=== PATIENT | male | born 1950 | race Caucasian/White ===

== ENCOUNTER 2017-07-02 14:34 | Observation (INO) | payer MEDICARE, OTHER ==
[2017-07-02 14:34] VITALS: BMI 34.7
[2017-07-02 16:00] LABS: BASO % 0.7 % (0.0-2.0); EOS # 0.3 K/uL (0.0-0.7); EOS % 4.8 % (0.0-4.0); HEMOGLOBIN 12.7 g/dL (12.0-18.0); LYMPH # 1.8 K/uL (1.0-4.3); LYMPH % 25.3 % (20.0-40.0); MEAN CELL VOLUME 78.8 fL (80.0-94.0); MEAN CORPUSCULAR HEMOGLOBIN 25.5 pg (27.0-31.0); MEAN CORPUSCULAR HGB CONC 32.3 g/dL (33.0-37.0); MONO # 0.6 K/uL (0.0-0.8); MONO % 8.4 % (0.0-10.0); NEUT # 4.3 K/uL (1.8-7.0); NEUT % 60.8 % (50.0-75.0); RBC 4.98 Mil/uL (4.40-5.90); RED CELL DISTRIBUTION WIDTH 15.1 % (11.5-14.5)
[2017-07-02 16:11] LABS: PROTHROMBIN TIME 11.7 SECONDS (9.7-12.2)
[2017-07-02 16:18] LABS: ALB/GLOB RATIO 1.3 (1.0-2.1); ALBUMIN 4.3 g/dL (3.5-5.0); GFR AFRICAN-AMERICAN > 60; GFR NON-AFRICAN AMERICAN > 60
[2017-07-02 16:21] LABS: ALT/SGPT 26 U/L (21-72); AST/SGOT 28 U/L (17-59); BLOOD UREA NITROGEN 19 mg/dL (9-20)
[2017-07-02 16:32] LABS: B-TYPE NATRIURETIC PEPTIDE 33.3 pg/mL (0-900)
--- NOTE | 2017-07-02 17:16 | C.PDOC ---
Time Seen by Provider: 07/02/17 15:15 Chief Complaint (Nursing): Chest Pain History Per: Patient Onset/Duration Of Symptoms: Days (about 2 weeks), Intermittent Episodes Current Symptoms Are (Timing): Still Present Severity: Moderate Quality: "Pain" Associated Symptoms: Dyspnea, Other (Dizziness) Modifying Factors: Other Indicated Below Exacerbating Factors: Exertion Alleviating Factors: Rest Nitro Therapy Administered: 1, Per ED, Partial Relief Additional History Per: Prior Records Past Medical History Reviewed: Historical Data, Nursing Documentation, Vital Signs Vital Signs: Last Vital Signs Temp 98.4 F 07/02/17 16:07 Pulse 86 07/02/17 16:14 Resp 18 07/02/17 16:14 BP 158/85 H 07/02/17 16:14 Pulse Ox 97 07/02/17 17:17 - Medical History PMH: CAD, HTN, Hypercholesterolemia Surgical History: Coronary Stent - [facility] Procedures INSERTION OF ONE VASCULAR STENT (07/27/14) INSRT OF DRUG-ELUTING CORON ARTERY STENTS(S) (07/27/14) LEFT HEART CARDIAC CATH (07/27/14) LT HEART ANGIOCARDIOGRAM (07/27/14) MEASURE OF CARDIAC SAMPL & PRESSURE, L HEART, PERC APPROACH (03/22/15) PERCUTANEOUS TRANSLUMINAL CORONARY ANGIOPLASTY [PTCA] (07/27/14) PLAIN RADIOGRAPHY OF LEFT HEART USING OTHER CONTRAST (03/22/15) PLAIN RADIOGRAPHY OF MULT COR ART USING OTH CONTRAST (03/22/15) PROCEDURE ON SINGLE VESSEL (07/27/14) Family History: States: Unknown Family Hx - Social History Hx Tobacco Use: No Hx Alcohol Use: No Hx Substance Use: No - Immunization History Hx Tetanus Toxoid Vaccination: No Hx Influenza Vaccination: Yes Hx Pneumococcal Vaccination: No Review Of Systems Except As Marked, All Systems Reviewed And Found Negative. Constitutional: Negative for: Fever Cardiovascular: Positive for: Chest Pain, Light Headedness Respiratory: Positive for: SOB with Excertion. Negative for: Hemoptysis Gastrointestinal: Negative for: Vomiting, Abdominal Pain, Diarrhea Musculoskeletal: Negative for: Neck Pain, Leg Pain Skin: Positive for: Rash (Itchy rash on anterior chest wall. Not painful.) Neurological: Negative for: Weakness, Numbness Physical Exam - Physical Exam Appears: Non-toxic, No Acute Distress Skin: Normal Color, Warm, Dry, No Rash Head: Atraumatic, Normacephalic Eye(s): bilateral: PERRL, EOMI Neck: Normal ROM, Supple Chest: Other (pruritis rash on sternum) Cardiovascular: Rhythm Regular Respiratory: Normal Breath Sounds, No Accessory Muscle Use Gastrointestinal/Abdominal: Soft, No Tenderness Back: No CVA Tenderness Extremity: Normal ROM, No Pedal Edema, No Calf Tenderness Neurological/Psych: Oriented x3, Normal Motor, Normal Sensation ED Course And Treatment - Laboratory Results Result Diagrams: 07/02/17 15:56 07/02/17 15:56 Lab Interpretation: No Acute Changes ECG: Interpreted By Me, Viewed By Me ECG Rhythm: Sinus Rhythm, Nonspecific Changes ECG Interpretation: No Changes From Prior Interpretation Of ECG: T wave inversions in inferiorlateral leads. Rate From EC O2 Sat by Pulse Oximetry: 97 Pulse Ox Interpretation: Normal - Radiology CXR: Interpreted by Me, Viewed By Me CXR Interpretation: Yes: No Acute Disease Progress - Interventions Interventions:: Observation, Oxygen - Medications Administered Oral: Aspirin - Data Reviewed Data Reviewed: Lab, Diagnostic imaging, EKG, Old records - Patient Status Patient status: Partially improved - Continuity of Care Discussed patient case with:: Patient, ED Nurse, Covering for PMD Disposition Discussed With : Jean Paul Veras Comment: He accepted pt on his service. Doctor Will See Patient In The: Hospital Counseled Patient/Family Regarding: Studies Performed, Diagnosis - Disposition Disposition: HOSPITALIZED Disposition Time: 17:38 Condition: FAIR - Clinical Impression Clinical Impression: ACS (acute coronary syndrome)
--- NOTE | 2017-07-02 17:47 | RAD ---
PROCEDURE: CHEST RADIOGRAPH, 1 VIEW HISTORY: chest pain COMPARISON: 03/20/2015 FINDINGS: LUNGS: Clear. PLEURA: No pneumothorax or pleural fluid seen. CARDIOVASCULAR: No radiographic findings to suggest acute or significant cardiovascular disease. OSSEOUS STRUCTURES: No significant abnormalities. VISUALIZED UPPER ABDOMEN: Normal. OTHER FINDINGS: None. IMPRESSION: No active disease. No acute/significant interval changes.
--- NOTE | 2017-07-02 18:12 | CP.PCM.HP ---
Present on Admission - Present on Admission Any Indicators Present on Admission: No Past Patient History - Past Medical History & Family History Past Medical History?: No - Past Social History Smoking Status: Never Smoked - CARDIAC Hx Hypercholesterolemia: Yes Hx Hypertension: Yes - PULMONARY Hx Respiratory Disorders: No - NEUROLOGICAL Hx Neurological Disorder: No - HEENT Hx HEENT Problems: No - ENDOCRINE/METABOLIC Hx Endocrine Disorders: No Hx Diabetes Mellitus Type 2: Yes - HEMATOLOGICAL/ONCOLOGICAL Hx Blood Disorders: No - INTEGUMENTARY Hx Dermatological Problems: No - MUSCULOSKELETAL/RHEUMATOLOGICAL Hx Falls: No - GASTROINTESTINAL Hx Gastrointestinal Disorders: No - GENITOURINARY/GYNECOLOGICAL Hx Genitourinary Disorders: No Other/Comment: frequent urination - PSYCHIATRIC Hx Substance Use: No - SURGICAL HISTORY Hx Coronary Stent: Yes - ANESTHESIA Hx Anesthesia: Yes Hx Anesthesia Reactions: No Meds Allergies/Adverse Reactions: Allergies Allergy/AdvReac Type Severity Reaction Status Date / Time No Known Allergies Allergy Verified 07/02/17 15:29 Physical Exam - Constitutional Appears: No Acute Distress - Head Exam Head Exam: ATRAUMATIC, NORMAL INSPECTION, NORMOCEPHALIC - Eye Exam Eye Exam: EOMI, Normal appearance, PERRL Pupil Exam: NORMAL ACCOMODATION, PERRL - ENT Exam ENT Exam: Mucous Membranes Moist - Neck Exam Neck exam: Positive for: Full Rom - Respiratory Exam Respiratory Exam: Decreased Breath Sounds - Cardiovascular Exam Cardiovascular Exam: REGULAR RHYTHM, +S1, +S2 - GI/Abdominal Exam GI & Abdominal Exam: Diminished Bowel Sounds, Soft - Rectal Exam Rectal Exam: Deferred Results - Vital Signs Recent Vital Signs: Last Vital Signs Temp 98.4 F 07/02/17 16:07 Pulse 85 07/02/17 17:38 Resp 20 07/02/17 17:38 BP 144/77 07/02/17 17:38 Pulse Ox 97 07/02/17 17:47 - Labs Result Diagrams: 07/02/17 15:56 07/02/17 15:56 Labs: Laboratory Results - last 24 hr 07/02/17 07/02/17 07/02/17 15:56 15:56 15:56 WBC 7.0 RBC 4.98 Hgb 12.7 Hct 39.3 MCV 78.8 L MCH 25.5 L MCHC 32.3 L RDW 15.1 H Plt Count 215 MPV 9.0 Neut % (Auto) 60.8 Lymph % (Auto) 25.3 Donley % (Auto) 8.4 Eos % (Auto) 4.8 H Baso % (Auto) 0.7 Neut # (Auto) 4.3 Lymph # (Auto) 1.8 Donley # (Auto) 0.6 Eos # (Auto) 0.3 Baso # (Auto) 0.0 PT 11.7 INR 1.0 APTT 29 Sodium 140 Potassium 4.9 Chloride 101 Carbon Dioxide 23 Anion Gap 21 H BUN 19 Creatinine 0.8 Est GFR ( Amer) > 60 Est GFR (Non-Af Amer) > 60 Random Glucose 85 Calcium 9.0 Total Bilirubin 0.6 AST 28 ALT 26 Alkaline Phosphatase 66 Troponin I < 0.0120 NT-Pro-B Natriuret Pep 33.3 Total Protein 7.7 Albumin 4.3 Globulin 3.4 Albumin/Globulin Ratio 1.3
[2017-07-02 21:21] LABS: CK-MB 1.08 ng/mL (0.0-3.38)
[2017-07-03 08:20] LABS: CK-MB 0.92 ng/mL (0.0-3.38)
--- NOTE | 2017-07-03 10:10 | CP.PCM.PN ---
Subjective - Date & Time of Evaluation Date of Evaluation: 07/03/17 Time of Evaluation: 10:09 - Subjective Subjective: Progress note for Dr. Veras's Service Pt seen and examined at bedside. He states that he is feeling well today and denies any pain. He states that he has pain usually when moving around and mobilizing the left shoulder. He exhibits that he can reproduce the pain with contracture of the left pectoral group. He also admits to tenderness over the left side of the chest just lateral to the sternum. He denies SOB. Objective - Vital Signs/Intake and Output Vital Signs (last 24 hours): Temp Pulse Resp BP Pulse Ox 98.0 F 71 20 160/87 H 99 07/03/17 07:36 07/03/17 07:36 07/03/17 07:36 07/03/17 07:36 07/03/17 07:36 - Medications Medications: Current Medications Aspirin (Aspirin Chewable) 81 mg PO DAILY [facility] Clopidogrel Bisulfate (Plavix) 75 mg PO DAILY [facility] Heparin Sodium (Porcine) (Heparin) 5,000 units SC Q12 [facility] Metoprolol Tartrate (Lopressor) 25 mg PO BID [facility] Last Admin: 07/02/17 21:30 Dose: 25 mg Rosuvastatin Calcium (Crestor) 20 mg PO HS [facility] Last Admin: 07/02/17 21:29 Dose: 20 mg - Labs Labs: 07/02/17 15:56 07/02/17 15:56 PT 11.7 SECONDS (9.7-12.2) 07/02/17 15:56 INR 1.0 07/02/17 15:56 APTT 29 SECONDS (21-34) 07/02/17 15:56 - Constitutional Appears: No Acute Distress - Head Exam Head Exam: ATRAUMATIC, NORMOCEPHALIC - Eye Exam Eye Exam: EOMI, Normal appearance - ENT Exam ENT Exam: Mucous Membranes Moist - Respiratory Exam Respiratory Exam: Clear to Ausculation Bilateral, NORMAL BREATHING PATTERN - Cardiovascular Exam Cardiovascular Exam: REGULAR RHYTHM, +S1, +S2 - GI/Abdominal Exam GI & Abdominal Exam: Soft. absent: Distended, Tenderness - Neurological Exam Neurological Exam: Alert, Awake, Oriented x3 - Psychiatric Exam Psychiatric exam: Normal Affect, Normal Mood - Skin Skin Exam: Dry, Warm Assessment and Plan - Assessment and Plan (Free Text) Plan: Chest pain with hx of CAD Consult placed to cardio, Dr. West- follow up recs Stress test planned for 07/04 s/p cardiac catheterization in 2014 showing 90% occlusion of RCA - JAYDON placed troponin negative x3 Pro-BNP 33 Follow up 2D echo Follow up official read of EKG CXR- no acute changes ASA 81mg PO Qdaily Plavix 75mg PO Qdaily Metoprolol 25mg PO BID Crestor 20mg PO QHS TSH/free T4 level ordered Lipid panel ordered HbA1C ordered HTN- uncontrolled Metoprolol Tar 25mg PO BID Restarted home med- Enalapril 10mg PO BID Follow up Cardio recs for better BP control Prophylaxis Protonix 40mg PO Qdaily Heparin 5K units sc q12hrs Heart healthy diet case discussed with Dr. Veras all management as per Dr. Veras
[2017-07-03 13:47] LABS: BASO # 0.1 K/uL (0.0-0.2); BASO % 0.9 % (0.0-2.0); EOS # 0.2 K/uL (0.0-0.7); HEMOGLOBIN 12.5 g/dL (12.0-18.0); LYMPH # 1.6 K/uL (1.0-4.3); LYMPH % 25.6 % (20.0-40.0); MEAN CELL VOLUME 78.2 fL (80.0-94.0); MEAN CORPUSCULAR HEMOGLOBIN 25.7 pg (27.0-31.0); MEAN CORPUSCULAR HGB CONC 32.9 g/dL (33.0-37.0); MEAN PLATELET VOLUME 8.7 fL (7.2-11.7); MONO # 0.5 K/uL (0.0-0.8); MONO % 8.4 % (0.0-10.0); NEUT # 3.8 K/uL (1.8-7.0); NEUT % 61.1 % (50.0-75.0); RBC 4.85 Mil/uL (4.40-5.90); WHITE BLOOD COUNT 6.2 K/uL (4.8-10.8)
[2017-07-03 14:22] LABS: ALB/GLOB RATIO 1.4 (1.0-2.1); ALBUMIN 4.1 g/dL (3.5-5.0); ALT/SGPT 31 U/L (21-72); AST/SGOT 21 U/L (17-59); BLOOD UREA NITROGEN 18 mg/dL (9-20); CALCIUM 8.7 mg/dl (8.6-10.4); GFR AFRICAN-AMERICAN > 60; GFR NON-AFRICAN AMERICAN > 60; HDL CHOLESTEROL 30 mg/dL (30-70)
[2017-07-03 14:32] LABS: LDL CHOLESTEROL 78 mg/dL (0-129)
--- NOTE | 2017-07-03 15:57 | CP.PCM.PN ---
Subjective - Date & Time of Evaluation Date of Evaluation: 07/03/17 Time of Evaluation: 09:40 - Subjective Subjective: clinically same Objective - Vital Signs/Intake and Output Vital Signs (last 24 hours): Temp Pulse Resp BP Pulse Ox 98.0 F 71 20 166/89 H 99 07/03/17 07:36 07/03/17 07:36 07/03/17 07:36 07/03/17 10:36 07/03/17 07:36 - Medications Medications: Current Medications Aspirin (Aspirin Chewable) 81 mg PO DAILY [facility] Last Admin: 07/03/17 10:36 Dose: 81 mg Clopidogrel Bisulfate (Plavix) 75 mg PO DAILY [facility] Last Admin: 07/03/17 10:36 Dose: 75 mg Enalapril Maleate (Vasotec) 10 mg PO BID [facility] Heparin Sodium (Porcine) (Heparin) 5,000 units SC Q12 [facility] Last Admin: 07/03/17 10:37 Dose: Not Given Metoprolol Tartrate (Lopressor) 25 mg PO BID [facility] Last Admin: 07/03/17 10:36 Dose: 25 mg Rosuvastatin Calcium (Crestor) 20 mg PO HS [facility] Last Admin: 07/02/17 21:29 Dose: 20 mg - Labs Labs: 07/03/17 13:36 07/03/17 13:36 PT 11.7 SECONDS (9.7-12.2) 07/02/17 15:56 INR 1.0 07/02/17 15:56 APTT 29 SECONDS (21-34) 07/02/17 15:56 - Constitutional Appears: Well - Head Exam Head Exam: ATRAUMATIC, NORMAL INSPECTION, NORMOCEPHALIC - Eye Exam Eye Exam: EOMI, Normal appearance, PERRL Pupil Exam: NORMAL ACCOMODATION, PERRL - ENT Exam ENT Exam: Mucous Membranes Moist, Normal Exam - Neck Exam Neck Exam: Full ROM, Normal Inspection. absent: Lymphadenopathy - Respiratory Exam Respiratory Exam: Decreased Breath Sounds - Cardiovascular Exam Cardiovascular Exam: REGULAR RHYTHM, +S1, +S2 - GI/Abdominal Exam GI & Abdominal Exam: Soft, Diminished Bowel Sounds - Rectal Exam Rectal Exam: Deferred
--- NOTE | 2017-07-04 01:00 | CON ---
DATE: CARDIOLOGY CONSULTATION REASON FOR CONSULTATION: Chest pain. HISTORY OF PRESENT ILLNESS: The patient is a 67-year-old male, originally from [place] who has a history of hypertension, diabetes mellitus, history of coronary artery disease, status post coronary artery stenting presented because of chest pain, located in the left pectoral area with exertional dyspnea. The patient denied any associated diaphoresis. SOCIAL HISTORY: The patient is a former smoker. MEDICATIONS: Aspirin 81 mg once a day, Crestor 20 mg once a day, subcutaneous heparin 5000 units every 12 hours, Lopressor 25 mg once a day, Plavix 75 mg once a day, Vasotec 10 mg twice a day. REVIEW OF SYSTEMS: No nausea, vomiting. No fever or chills. The patient has steady left shoulder pain for the past few days. PHYSICAL EXAMINATION: GENERAL: The patient is an elderly male, who does not appear to be in any acute distress. VITAL SIGNS: Blood pressure 116/87, heart rate 71, temperature 98, respirations 20. HEENT: Normocephalic. NECK: No JVD. CHEST: Clear. HEART: S1 and S2 regular. ABDOMEN: Soft. EXTREMITIES: No edema. LABORATORIES: Hemoglobin and hematocrit 12.5 and 37.9. White count and platelet count are within normal limits. Yesterday' s SMA-7 is within normal limits, except for an anion gap of 21, three sets of troponins are negative. PT, PTT, INR are within normal limits. EKG revealed sinus rhythm with nonspecific T-wave changes. ASSESSMENT: 1. Chest pain. Myocardial infarction is ruled out. 2. Hypertension and diabetes mellitus. 3. Coronary artery disease, status post coronary stenting about 2 years ago. RECOMMENDATIONS: Continue current aspirin 81 mg once a day, Crestor 20 mg once a day, Lopressor 25 mg once a day, Plavix 75 mg once a day, Vasotec 10 mg twice a day. The patient is scheduled for Myoview stress test tomorrow. Young West MD
--- NOTE | 2017-07-04 06:29 | CARD ---
APPROVED REPORT EXAM: Two-dimensional and M-mode echocardiogram with Doppler and color Doppler. Other Information Quality : GoodRhythm : NSR INDICATION Dizziness and Vertigo Chest Pain Non STEMI RISK FACTORS Hypertension Hyperlipidemia Diabetes 2D DIMENSIONS IVSd1.2 (0.7-1.1cm)LVDd4.8 (3.9-5.9cm) PWd0.9 (0.7-1.1cm)LVDs2.9 (2.5-4.0cm) FS (%) 39.8 %LVEF (%)70.3 (>50%) M-Mode DIMENSIONS RVDd0.74 (2.1-3.2cm)Left Atrium (MM)3.76 (2.5-4.0cm) IVSd1.29 (0.7-1.1cm)Aortic Root2.94 (2.2-3.7cm) LVDd5.35 (4.0-5.6cm)Aortic Cusp Exc.1.49 (1.5-2.0cm) PWd0.89 (0.7-1.1cm)FS (%) 36 % LVDs3.43 (2.0-3.8cm)LVEF (%)65 (>50%) Mitral Valve MV E Rinjiyho60.6cm/sMV A Ykzlfzne938.1cm/sE/A ratio0.8 TDI E/Lateral E'0.0E/Medial E'0.0 <Conclusion> Left ventricle: thickness: normal; size: normal; overall ejection fraction: 65%: diastolic filling pressures: elevated Mitral valve: annulus: normal: leaflets: normal: excursion: normal; no significant trans-mitral gradient: no significant incompetence: left atrium: normal Aortic valve: leaflets: normal: excursion: normal; no significant trans-aortic gradient: No significant incompetence: aortic root: normal Right sided Structures: Pulmonary valve: normal; no significant incompetence; Tricuspid valve: normal; no significant incompetence: Intra-cardiac hemodynamics: pulmonary systolic pressures: normal; central venous pressures: normal No pericardial effusion
[2017-07-04 08:10] LABS: BASO % 0.3 % (0.0-2.0); EOS # 0.3 K/uL (0.0-0.7); EOS % 4.9 % (0.0-4.0); HEMOGLOBIN 12.6 g/dL (12.0-18.0); LYMPH # 1.5 K/uL (1.0-4.3); LYMPH % 24.1 % (20.0-40.0); MEAN CELL VOLUME 78.5 fL (80.0-94.0); MEAN CORPUSCULAR HGB CONC 33.2 g/dL (33.0-37.0); MEAN PLATELET VOLUME 8.9 fL (7.2-11.7); MONO # 0.5 K/uL (0.0-0.8); MONO % 8.4 % (0.0-10.0); NEUT # 3.9 K/uL (1.8-7.0); NEUT % 62.3 % (50.0-75.0); NRBC % 0.1 % (0.0-2.0); RBC 4.86 Mil/uL (4.40-5.90); RED CELL DISTRIBUTION WIDTH 14.9 % (11.5-14.5); WHITE BLOOD COUNT 6.2 K/uL (4.8-10.8)
[2017-07-04 08:30] VITALS: RESP 18
[2017-07-04 09:01] LABS: ALB/GLOB RATIO 1.5 (1.0-2.1); ALT/SGPT 24 U/L (21-72); AST/SGOT 25 U/L (17-59); BLOOD UREA NITROGEN 18 mg/dL (9-20); CALCIUM 8.5 mg/dl (8.6-10.4); GFR AFRICAN-AMERICAN > 60; GFR NON-AFRICAN AMERICAN > 60
--- NOTE | 2017-07-04 10:58 | CP.PCM.PN ---
Subjective - Date & Time of Evaluation Date of Evaluation: 07/04/17 Time of Evaluation: 10:55 - Subjective Subjective: Progress note for Dr. Veras's Service Pt seen and examined at bedside. He states that he is feeling well today and denies any pain. He is awaiting stress testing this morning. No acute events overnight. Objective - Vital Signs/Intake and Output Vital Signs (last 24 hours): Temp Pulse Resp BP Pulse Ox 98.0 F 66 18 153/84 H 97 07/04/17 07:00 07/04/17 07:00 07/04/17 07:00 07/04/17 07:00 07/04/17 07:00 - Medications Medications: Current Medications Aspirin (Aspirin Chewable) 81 mg PO DAILY [facility] Last Admin: 07/04/17 10:25 Dose: Not Given Clopidogrel Bisulfate (Plavix) 75 mg PO DAILY [facility] Last Admin: 07/04/17 10:25 Dose: Not Given Enalapril Maleate (Vasotec) 10 mg PO BID [facility] Last Admin: 07/04/17 10:25 Dose: Not Given Heparin Sodium (Porcine) (Heparin) 5,000 units SC Q12 [facility] Last Admin: 07/04/17 10:25 Dose: Not Given Metoprolol Tartrate (Lopressor) 25 mg PO BID [facility] Last Admin: 07/04/17 10:25 Dose: Not Given Rosuvastatin Calcium (Crestor) 20 mg PO HS [facility] Last Admin: 07/03/17 21:20 Dose: 20 mg - Labs Labs: 07/04/17 07:58 07/04/17 07:58 PT 11.7 SECONDS (9.7-12.2) 07/02/17 15:56 INR 1.0 07/02/17 15:56 APTT 29 SECONDS (21-34) 07/02/17 15:56 - Constitutional Appears: No Acute Distress - Head Exam Head Exam: ATRAUMATIC, NORMOCEPHALIC - Eye Exam Eye Exam: EOMI, Normal appearance - ENT Exam ENT Exam: Mucous Membranes Moist - Respiratory Exam Respiratory Exam: Clear to Ausculation Bilateral, NORMAL BREATHING PATTERN - Cardiovascular Exam Cardiovascular Exam: REGULAR RHYTHM, +S1, +S2 - GI/Abdominal Exam GI & Abdominal Exam: Soft. absent: Distended, Tenderness - Neurological Exam Neurological Exam: Alert, Awake, Oriented x3 - Psychiatric Exam Psychiatric exam: Normal Affect, Normal Mood - Skin Skin Exam: Dry, Warm Assessment and Plan - Assessment and Plan (Free Text) Plan: Chest pain with hx of CAD Consult placed to cardio, Dr. West- follow up recs Stress test planned for 07/04 s/p cardiac catheterization in 2014 showing 90% occlusion of RCA - JYADON placed troponin negative x3 Pro-BNP 33 Follow up 2D echo Follow up official read of EKG CXR- no acute changes ASA 81mg PO Qdaily Plavix 75mg PO Qdaily Metoprolol 25mg PO BID Enalapril 10mg PO BID Crestor 20mg PO QHS TSH/free T4 level ordered Lipid panel Total Cholesterol 126 Triglycerides 151 LDL 78 HDL 30 TSH 1.49 Diabetes- newly diagnosed HbA1C 8.0 fingersticks ACHS diabetic diet HTN- uncontrolled Metoprolol Tar 25mg PO BID Enalapril 10mg PO BID Follow up Cardio recs for better BP control Prophylaxis Protonix 40mg PO Qdaily Heparin 5K units sc q12hrs diabetic diet case discussed with Dr. Veras all management as per Dr. Veras
[2017-07-04 14:40] VITALS: PULSE 81
--- NOTE | 2017-07-04 18:58 | CP.PCM.PN ---
Subjective - Date & Time of Evaluation Date of Evaluation: 07/04/17 Time of Evaluation: 09:00 - Subjective Subjective: clinically same Objective - Vital Signs/Intake and Output Vital Signs (last 24 hours): Temp Pulse Resp BP Pulse Ox 98.3 F 81 18 130/70 99 07/04/17 15:30 07/04/17 15:30 07/04/17 15:30 07/04/17 17:56 07/04/17 15:30 - Medications Medications: Current Medications Aspirin (Aspirin Chewable) 81 mg PO DAILY [facility] Last Admin: 07/04/17 10:25 Dose: Not Given Clopidogrel Bisulfate (Plavix) 75 mg PO DAILY [facility] Last Admin: 07/04/17 10:25 Dose: Not Given Enalapril Maleate (Vasotec) 10 mg PO BID [facility] Last Admin: 07/04/17 17:56 Dose: 10 mg Heparin Sodium (Porcine) (Heparin) 5,000 units SC Q12 [facility] Last Admin: 07/04/17 10:25 Dose: Not Given Metoprolol Tartrate (Lopressor) 25 mg PO BID [facility] Last Admin: 07/04/17 17:56 Dose: 25 mg Rosuvastatin Calcium (Crestor) 20 mg PO HS [facility] Last Admin: 07/03/17 21:20 Dose: 20 mg - Labs Labs: 07/04/17 07:58 07/04/17 07:58 PT 11.7 SECONDS (9.7-12.2) 07/02/17 15:56 INR 1.0 07/02/17 15:56 APTT 29 SECONDS (21-34) 07/02/17 15:56 - Constitutional Appears: Well - Head Exam Head Exam: ATRAUMATIC, NORMAL INSPECTION, NORMOCEPHALIC - Eye Exam Eye Exam: EOMI, Normal appearance, PERRL Pupil Exam: NORMAL ACCOMODATION, PERRL - ENT Exam ENT Exam: Mucous Membranes Moist, Normal Exam - Neck Exam Neck Exam: Full ROM, Normal Inspection. absent: Lymphadenopathy - Respiratory Exam Respiratory Exam: Decreased Breath Sounds - Cardiovascular Exam Cardiovascular Exam: REGULAR RHYTHM, +S1, +S2 - GI/Abdominal Exam GI & Abdominal Exam: Soft, Diminished Bowel Sounds - Rectal Exam Rectal Exam: Deferred
--- NOTE | 2017-07-04 19:12 | CARD ---
APPROVED REPORT Protocol: JEAN Test Type: Stress Nuclear Test Indications: CHEST PAIN Medications: LIST SCAN Medical History: CHEST PAIN Target HR: 151 bpm Resting ECG: normal Resting Heart Rate: 76 bpm Resting Blood Pressure: 130/70mmHg submaximum (85%): 128 bpm TEST SUMMARY [id number]..1.081/.0. PRETESTWARM-UP06:[id number]/70.0. EXERCISESTAGE 103:[id number]/80.0. EXERCISESTAGE 201:[id number]/80.0. [id number]:[id number]/80.0. POST EXERCISE Reason for Termination: Target heart rate achieved Target HR: No Max HR: 142 bpm 98% of Maximum Predicted HR: 151 bpm Exercise duration: 04:10 min:sec, 2 Stage Exercise capacity: 7.0METs Max Blood Pressure: 222/80mmHg Blood Pressure response to exercise: normal resting BP - exaggerated response Heart Rate response to exercise: appropriate Chest Pain: No, none Angina index: 0 Arrhythmia: Yes, ventricular premature beats-isolated ST Change: Yes, 0.5 mm Deviation: 0 mm EXAM: Myocardial Perfusion REST/STRESS Imaging Protocol The imaging protocol used to acquire images was Rest Tc-99m/stress Tc-99m 1 day Rest Spect myocardial perfusion imaging was performed in supine position 41 minutes following the injection of 12.9 mCi of Tc-99 Myoview. Gated Stress Spect was performed 40 minutes after intravenous 32.8 mCi Tc-99 Myoview injection. The images were gated to evaluate regional wall motion and calculate ventricular ejection fraction.Images were reconstructed using backfilter projection method in short horizontal and verticle long axis. Spect slices were generated. RESTING DATA EDV82.10tvWW0.80L/min ESV34.00mlMyocardial Mqpp343.00g Av. Heart Rate78.00bpm EF59.00% STRESS DATA EDV84.40gjGE4.90L/min ESV34.00mlMyocardial Zmjq009.00g EF60.00% Regional WT score at stress:2.00 Regional WM score at stress:1.00 Summed WT score at stress:18.00 Av. Heart Rate77.00bpmSummed WM score at stress:4.00 LV Perfusion 1 Perfusion Defect Location: apical lateral Perfusion Defect Size: Small (1-2 segments) Perfusion Defect Severity: Mild Type of Perfusion Defect: Fixed LV Perf. Quant 17 Seg. SSS5.00 17 Seg. SRS4.00 17 Seg. SDS1.00 Stress Defect Extent (% LAD)0.00Rest Defect Extent (% LAD)0.00Rev. Defect Extent (% LAD)0.00 Stress Defect Extent (% LCX)31.30Rest Defect Extent (% LCX)23.80Rev. Defect Extent (% LCX)0.00 Stress Defect Extent (% RCA)4.40Rest Defect Extent (% RCA)0.00Rev. Defect Extent (% RCA)0.00 Stress Defect Extent (% DEBBI)9.60Rest Defect Extent (% DEBBI)6.30Rev. Defect Extent (% DEBBI)0.00 Conclusion 1. Negative Myoview stress test for ischemia 2. Poor Exercise Tolerance
--- NOTE | 2017-07-04 22:37 | PN ---
DATE: SUBJECTIVE: The patient denies chest pain. PHYSICAL EXAMINATION: VITAL SIGNS: Blood pressure 134/57, heart rate 81, temperature 98.3. HEENT: Normocephalic. CHEST: Clear. HEART: S1 and S2 regular. EXTREMITIES: No edema. The patient exercised for 4 minutes and 10 seconds on Lefty protocol, and this was terminated due to fatigue. The patient achieved 92% of the predicted maximal heart rate. No ischemic EKG changes or chest pain. I will review the myocardial images once they are completed. Young West MD
--- NOTE | 2017-07-04 23:24 | CARD ---
APPROVED REPORT EKG Measurement Heart [id number] NE 182P55 [id number] <Conclusion> Normal sinus rhythm Nonspecific T wave abnormality Abnormal ECG
[2017-07-05 11:09] VITALS: BP 130/70; TEMP 98.3; O2SAT 99
== END 2017-07-04 20:10 | disposition home or self-care (01) ==
LOC: C.ER 14:34 → C.9E 17:39 → C.5S 18:26
PROVIDERS: ADMIT Internal Medicine Nephrology; ATTEND Internal Medicine Nephrology
DX: R07.9 Chest pain, unspecified (principal); I25.10 Atherosclerotic heart disease of native coronary artery without angina pectoris; Z95.5 Presence of coronary angioplasty implant and graft; I10 Essential (primary) hypertension; E11.9 Type 2 diabetes mellitus without complications; E78.00 Pure hypercholesterolemia, unspecified; R35.0 Frequency of micturition
CPT/HCPCS: 36415; 71045; 78452; 80053; 80061; 82948; 83036; 83880; 84439; 84443; 84484; 85025; 85378; 85610; 85730; 93005; 93017; 93306; 99285; A9502; G0378; J1644

== ENCOUNTER 2018-08-16 07:30 | Outpatient (CLI) | payer MEDICARE | END 2018-08-16 07:31 | disposition home or self-care (01) | LOC: C.CARD 07:30 | DX: R06.02 Shortness of breath (principal); R07.2 Precordial pain; E11.9 Type 2 diabetes mellitus without complications; I25.83 Coronary atherosclerosis due to lipid rich plaque ==